=== PATIENT | female | born 1985 | race African-American/Black ===

== ENCOUNTER 2019-07-14 14:23 | Outpatient (CLI) | payer OTHER ==
[2019-07-14 15:06] LABS: APPEARANCE,URINE SLIGHTLY-CLOUDY; BILIRUBIN,URINE NEGATIVE (NEGATIVE); COLOR,URINE YELLOW; GLUCOSE, URINE NEGATIVE (NEGATIVE); KETONES,URINE NEGATIVE (NEGATIVE); LEUKOCYTE ESTERASE,URINE SMALL (NEGATIVE); NITRITE,URINE NEGATIVE (NEGATIVE); PROTEIN,URINE 30 mg/dL (NEGATIVE); URINE SPECIFIC GRAVITY 1.025
[2019-07-14 15:25] LABS: URINE AMPHETAMINES SCREEN NEGATIVE; URINE BARBITURATES SCREEN NEGATIVE; URINE BENZODIAZEPINES SCREEN NEGATIVE; URINE COCAINE SCREEN NEGATIVE; URINE MARIJUANA (THC) SCREEN NEGATIVE; URINE METHADONE SCREEN NEGATIVE; URINE PHENCYCLIDINE SCREEN NEGATIVE
--- NOTE | 2019-07-14 16:01 | Non Stress Test Report ---
Non Stress Test Datetime Report Generated by CPN: 07/14/2019 16:01 DEMOGRAPHIC EGA NST: 38.4 INDICATION Indication for Study: Other - Please document "Reason for NST Other" in box below. Indication for Study (NST) Other: Labor Check MONITORING Monitor Explained: Monitor Explained; Test Explained; Patient Verbalized Understanding Time on Monitor: 07/14/2019 14:54 Time off Monitor: 07/14/2019 15:21 NST Duration: 27 NST INTERVENTIONS NST Interventions: None Physician Notified NST: Dr Juárez BABY A: [id number] BABY A Movement : Present Contraction Frequency : 0 FHR Baseline : 140 Accelerations : 15X15 Decelerations : None Variability : Moderate 6-25bpm NST Review: Meets Criteria for Reactive NST NST Review and Verified By : Tamela Lemus, RN NST Results: Reactive NST REPORT Report Trigger: Send Report
== END 2019-07-14 15:40 | disposition home or self-care (01) ==
LOC: LC 14:23
PROVIDERS: ATTEND Obstetrics & Gynecology
DX: O36.8330 Maternal care for abnormalities of the fetal heart rate or rhythm, third trimester, not applicable or unspecified (principal); Z3A.38 38 weeks gestation of pregnancy
CPT/HCPCS: 80307; 81005

== ENCOUNTER 2019-07-19 20:43 | Inpatient (IN) | payer OTHER ==
[2019-07-19] MEDS ORDERED: RINGERS SOLUTION,LACTATED 1,000 ML IV PRN (22:50)
[2019-07-19] MEDS ORDERED: OXYTOCIN 10 UNIT/ML VIAL ONE (23:12)
[2019-07-19] MEDS ORDERED: OXYTOCIN/NORMAL SALINE 20 UNIT/1,000 ML RTUINJ ONE (23:12)
[2019-07-19] MEDS ORDERED: LIDOCAINE 1% INJ-PF (10 MG/ML) 30 ML SDV ONE (23:12)
[2019-07-19] MEDS ORDERED: MISOPROSTOL 0.2 MG TABLET ONE (23:12)
[2019-07-19 23:20] LABS: APPEARANCE,URINE SLIGHTLY-CLOUDY; BILIRUBIN,URINE NEGATIVE (NEGATIVE); COLOR,URINE YELLOW; GLUCOSE, URINE NEGATIVE (NEGATIVE); KETONES,URINE 20 mg/dL (NEGATIVE); LEUKOCYTE ESTERASE,URINE SMALL (NEGATIVE); NITRITE,URINE NEGATIVE (NEGATIVE); PROTEIN,URINE NEGATIVE (NEGATIVE); URINE SPECIFIC GRAVITY 1.019; UROBILINOGEN,URINE NEGATIVE mg/dL (<2.0)
--- NOTE | 2019-07-19 23:21 | Admission Physical ---
Datetime Report Generated by CPN: 07/19/2019 23:21 CURRENT ADMISSION Chief Complaint: Uterine Contractions Indication for Induction: Not Applicable Admit Impression : Term, Intrauterine Admit Plan: Initiate Labor Protocol ALLERGIES Medication Allergies: No Known Allergies (01/17/2014) OBSTETRICAL HISTORY EDC: 07/24/2019 00:00 : 2 Para: 1 Term: 1 : 0 SAB: 0 IAB: 0 Ectopic: 0 Livin Cesareans: 0 VBACs: 0 Multiple Births: 0 PHYSICAL EXAM General: Normal HEENT: Normal Neurologic: Normal Thyroid: Normal Heart: Normal Lungs: Normal Breast: Deferred Back: Normal Abdomen: Normal Genitourinary Exam: Normal Extremities: Normal DTRs: Normal Pelvic Type: Adequate FETUS A EGA: 39.2 INFORMED CONSENT Signature: with User ID: [email or web address]
[2019-07-19 23:35] LABS: URINE AMPHETAMINES SCREEN NEGATIVE; URINE BARBITURATES SCREEN NEGATIVE; URINE BENZODIAZEPINES SCREEN NEGATIVE; URINE COCAINE SCREEN NEGATIVE; URINE MARIJUANA (THC) SCREEN NEGATIVE; URINE METHADONE SCREEN NEGATIVE; URINE PHENCYCLIDINE SCREEN NEGATIVE
[2019-07-19 23:42] LABS: ABSOLUTE BASOPHILS # (AUTO) 0.1 10^3/uL (0.0-0.2); ABSOLUTE LYMPHOCYTES (AUTO) 1.7 10^3/uL (0.5-4.7); ABSOLUTE MONOCYTES (AUTO) 0.5 10^3/uL (0.1-1.4); ABSOLUTE NEUT (AUTO) 7.1 10^3/uL (1.7-8.2); BASOPHILS % (AUTO) 0.7 % (0-2); EOSINOPHILS % (AUTO) 0.2 % (0-6); HEMATOCRIT 34.9 % (36.0-47.0); HEMOGLOBIN 11.8 g/dL (12.0-15.5); LYMPHOCYTES % (AUTO) 18.3 % (13-45); MEAN CORPUSCULAR HEMOGLOBIN 30.6 pg (27.0-33.4); MEAN CORPUSCULAR HGB CONC 33.7 g/dL (32.0-36.0); MEAN CORPUSCULAR VOLUME 91 fl (80-97); MONOCYTES % (AUTO) 5.2 % (3-13); PLATELET COUNT 256 10^3/uL (150-450); RED BLOOD COUNT 3.85 10^6/uL (3.72-5.28); RED CELL DISTRIBUTION WIDTH 13.8 % (11.5-14.0); SEGMENTED NEUTROPHILS % (AUTO) 75.6 % (42-78); TOTAL CELLS COUNTED % (AUTO) 100 %; WHITE BLOOD COUNT 9.4 10^3/uL (4.0-10.5)
[2019-07-20] MEDS ORDERED: PROMETHAZINE HCL INJ 25 MG/1 ML VIAL IV PRN (01:13)
[2019-07-20] MEDS ORDERED: GLYCERIN/WITCH HAZEL LEAF 1 EACH MED..WIPE TP PRN (01:13)
[2019-07-20] MEDS ORDERED: MAGNESIUM HYDROXIDE SUSP 30 ML UDCUP PO PRN (01:13)
[2019-07-20] MEDS ORDERED: ACETAMINOPHEN WITH CODEINE #3 TABLET PO PRN (01:13)
[2019-07-20] MEDS ORDERED: OXYTOCIN/NORMAL SALINE 20 UNIT/1,000 ML RTUINJ IV PRN (01:13)
[2019-07-20] MEDS ORDERED: MEASLES,MUMPS&RUBELLA VACC/PF 0.5 ML VIAL SUBCUT PRN (01:13)
[2019-07-20] MEDS ORDERED: PSEUDOEPHEDRINE HCL 30 MG TABLET PO PRN (01:13)
[2019-07-20] MEDS ORDERED: DIBUCAINE 1% OINTMENT 56 GM TP PRN (01:13)
[2019-07-20] MEDS ORDERED: ACETAMINOPHEN 650 MG SUPP.RECT PR PRN (01:13)
[2019-07-20] MEDS ORDERED: PROMETHAZINE HCL 25 MG SUPP.RECT PR PRN (01:13)
[2019-07-20] MEDS ORDERED: NA PHOS,M-B/NA PHOS,DI-BA (ADULT) 133 ML ENEMA PR PRN (01:13)
[2019-07-20] MEDS ORDERED: BENZOCAINE/MENTHOL AEROSOL SPRAY 56 ML TOP PRN (01:13)
[2019-07-20] MEDS ORDERED: DIPHENHYDRAMINE HCL 25 MG CAPSULE PO PRN (01:13)
[2019-07-20] MEDS ORDERED: ZOLPIDEM TARTRATE 5 MG TABLET PO PRN (01:13)
[2019-07-20] MEDS ORDERED: PROMETHAZINE HCL 25 MG TABLET PO PRN (01:13)
[2019-07-20] MEDS ORDERED: DIPH/PERTUSS(ACELL)/TETANUS VAC/PF 0.5 ML SYR (>=10YO) IM PRN (01:13)
[2019-07-20] MEDS ORDERED: IBUPROFEN 800 MG TABLET ONE ×2 (01:20→08:34)
[2019-07-20] MEDS: IBUPROFEN 800 MG TABLET PO SCH ×3 (08:36→21:00)
[2019-07-20] MEDS: FAMOTIDINE 20 MG TABLET PO SCH ×2 (10:37→22:00)
[2019-07-20] MEDS: DOCUSATE SODIUM 100 MG CAPSULE PO SCH ×3 (10:37→18:38)
[2019-07-20] MEDS: PRENATAL VITAMIN W DHA CAPSULE PO SCH (10:37)
[2019-07-20] MEDS: FERROUS SULFATE 325 MG TABLET PO SCH ×2 (10:37→18:23)
[2019-07-20] MEDS: SENNOSIDES/DOCUSATE 8.6-50 MG 1 EACH TABLET PO SCH (10:38)
[2019-07-21] MEDS: IBUPROFEN 800 MG TABLET PO SCH ×3 (05:30→21:38)
[2019-07-21 07:33] LABS: HEMATOCRIT 31.9 % (36.0-47.0); MEAN CORPUSCULAR HEMOGLOBIN 31.2 pg (27.0-33.4); MEAN CORPUSCULAR HGB CONC 34.4 g/dL (32.0-36.0); MEAN CORPUSCULAR VOLUME 91 fl (80-97); PLATELET COUNT 209 10^3/uL (150-450); RED BLOOD COUNT 3.52 10^6/uL (3.72-5.28); RED CELL DISTRIBUTION WIDTH 14.1 % (11.5-14.0); WHITE BLOOD COUNT 9.4 10^3/uL (4.0-10.5)
[2019-07-21] MEDS: DOCUSATE SODIUM 100 MG CAPSULE PO SCH ×2 (09:36→18:08)
[2019-07-21] MEDS: PRENATAL VITAMIN W DHA CAPSULE PO SCH (09:37)
[2019-07-21] MEDS: FAMOTIDINE 20 MG TABLET PO SCH ×2 (09:37→22:43)
[2019-07-21] MEDS: FERROUS SULFATE 325 MG TABLET PO SCH ×2 (09:37→18:41)
[2019-07-21] MEDS: SENNOSIDES/DOCUSATE 8.6-50 MG 1 EACH TABLET PO SCH (09:37)
--- NOTE | 2019-07-21 12:30 | PDOC PROGRESS REPORT ---
Subjective-OB Progress Note for:: 07/21/19 Subjective: reports bleeding slowing, pain controlled with current meds, denies needs Physical Exam (OB) Vital Signs: Temp Pulse Resp BP Pulse Ox 97.8 F 95 18 108/62 98 07/21/19 07:29 07/21/19 07:29 07/21/19 07:29 07/21/19 07:29 07/21/19 07:29 Intake & Output 07/20/19 07/21/19 07/22/19 06:59 06:59 06:59 Intake Total 400 Balance 400 - Abdomen Description: Soft Hernia Present: No Fundal Description: Firm, Midline Fundal Height: u/u - u/2 - Abdominal Distension: No distension Tenderness: Nontender - Extremities Lower extremities: Annie's sign - neg Calf: Normal, Nontender Objective-Diagnostic Laboratory: 07/21/19 07:03 07/21/19 07:03 WBC 9.4 RBC 3.52 L Hgb 11.0 L Hct 31.9 L MCV 91 MCH 31.2 MCHC 34.4 RDW 14.1 H Plt Count 209 Assessment and Plan(PN) - Time Spent with Patient Time with patient: Less than 15 minutes - Disposition Anticipated Discharge: Home Within: within 24 hours
[2019-07-22] MEDS: IBUPROFEN 800 MG TABLET PO SCH ×2 (06:09→14:25)
[2019-07-22 08:09] VITALS: BP 109/59
[2019-07-22] MEDS: FAMOTIDINE 20 MG TABLET PO SCH (10:21)
[2019-07-22] MEDS: FERROUS SULFATE 325 MG TABLET PO SCH (10:21)
[2019-07-22] MEDS: DOCUSATE SODIUM 100 MG CAPSULE PO SCH (10:21)
[2019-07-22] MEDS: PRENATAL VITAMIN W DHA CAPSULE PO SCH (10:22)
[2019-07-22] MEDS: SENNOSIDES/DOCUSATE 8.6-50 MG 1 EACH TABLET PO SCH (10:22)
--- NOTE | 2019-07-22 10:39 | PDOC DISCHARGE SUMMARY ---
Impression - Admit/DC Date/PCP Admission Date/Primary Care Provider: 07/19/19 23:00 BATSHEVA VALLADARES MD Discharge Date: 07/22/19 - Discharge Diagnosis (1) Vaginal delivery Is this a current diagnosis for this admission?: Yes - Additional Information Resuscitation Status: Full Code Discharge Diet: Regular Discharge Activity: Balance Activity w/Rest, Pelvic Rest Referrals: BATSHEVA VALLADARES MD [Primary Care Provider] - Prescriptions: Ibuprofen [Motrin 800 mg Tablet] 800 mg PO Q8HP PRN #60 tablet PRN Reason: Home Medications: No.137/Iron/Folic Acd [ Vitamin Tablet] 1 tab PO DAILY 01/17/14 Fluticasone Propionate [Flonase Nasal [place] 50 Mcg/[place] 16 gm] 2 sprays NASL Q12 #1 inhaler 12/18/15 Ibuprofen [Motrin 800 mg Tablet] 800 mg PO Q8HP PRN #60 tablet 07/22/19 Results Laboratory Results: WBC 9.4 10^3/uL (4.0-10.5) 07/21/19 07:03 RBC 3.52 10^6/uL (3.72-5.28) L 07/21/19 07:03 Hgb 11.0 g/dL (12.0-15.5) L 07/21/19 07:03 Hct 31.9 % (36.0-47.0) L 07/21/19 07:03 MCV 91 fl (80-97) 07/21/19 07:03 MCH 31.2 pg (27.0-33.4) 07/21/19 07:03 MCHC 34.4 g/dL (32.0-36.0) 07/21/19 07:03 RDW 14.1 % (11.5-14.0) H 07/21/19 07:03 Plt Count 209 10^3/uL (150-450) 07/21/19 07:03 Lymph % (Auto) 18.3 % (13-45) 07/19/19 23:06 [place] % (Auto) 5.2 % (3-13) 07/19/19 23:06 Eos % (Auto) 0.2 % (0-6) 07/19/19 23:06 Baso % (Auto) 0.7 % (0-2) 07/19/19 23:06 Absolute Neuts (auto) 7.1 10^3/uL (1.7-8.2) 07/19/19 23:06 Absolute Lymphs (auto) 1.7 10^3/uL (0.5-4.7) 07/19/19 23:06 Absolute Monos (auto) 0.5 10^3/uL (0.1-1.4) 07/19/19 23:06 Absolute Eos (auto) 0.0 10^3/uL (0.0-0.6) 07/19/19 23:06 Absolute Basos (auto) 0.1 10^3/uL (0.0-0.2) 07/19/19 23:06 Seg Neutrophils % 75.6 % (42-78) 07/19/19 23:06 Urine Color YELLOW 07/19/19 20:59 Urine Appearance SLIGHTLY-CLOUDY 07/19/19 20:59 Urine pH 6.0 (5.0-9.0) 07/19/19 20:59 Ur Specific [place] 1.019 07/19/19 20:59 Urine Protein NEGATIVE mg/dL (NEGATIVE) 07/19/19 20:59 Urine Glucose (UA) NEGATIVE mg/dL (NEGATIVE) 07/19/19 20:59 Urine Ketones 20 mg/dL (NEGATIVE) H 07/19/19 20:59 Urine Blood MODERATE (NEGATIVE) H 07/19/19 20:59 Urine Nitrite NEGATIVE (NEGATIVE) 07/19/19 20:59 Urine Bilirubin NEGATIVE (NEGATIVE) 07/19/19 20:59 Urine Urobilinogen NEGATIVE mg/dL (<2.0) 07/19/19 20:59 Ur Leukocyte Esterase SMALL (NEGATIVE) H 07/19/19 20:59 Urine Ascorbic Acid NEGATIVE (NEGATIVE) 07/19/19 20:59 Urine Opiates Screen NEGATIVE 07/19/19 20:59 Urine Methadone Screen NEGATIVE 07/19/19 20:59 Ur Barbiturates Screen NEGATIVE 07/19/19 20:59 Ur Phencyclidine Scrn NEGATIVE 07/19/19 20:59 Ur Amphetamines Screen NEGATIVE 07/19/19 20:59 U Benzodiazepines Scrn NEGATIVE 07/19/19 20:59 Urine Cocaine Screen NEGATIVE 07/19/19 20:59 U Marijuana (THC) Screen NEGATIVE 07/19/19 20:59 RPR NONREACTIVE (NONREACTIVE) 07/19/19 23:06 Blood Type O POSITIVE 07/19/19 23:06 Antibody Screen NEGATIVE 07/19/19 23:06
--- NOTE | 2019-07-24 14:29 | Delivery Summary ---
Del Sum A-C Datetime Report Generated by CPN: 07/24/2019 14:29 DELIVERY PERSONNEL DELIVERY PERSONNEL: [id number] Delivery Doctor:: Len Moreno MD Labor and Delivery Nurse:: Alvina Baldwin RN Labor and Delivery Nurse:: Amarilis Mcmullen RN Nursery Nurse:: Natividad Santiago, RN Merchandise Presentation Associate/GLASS CRUSHER: Aida Mark VICE PRESIDENT SUPPLY CHAIN MATERNAL INFORMATION Delivery Anesthesia: None Medications After Delivery: Pitocin Bolus-Please Comment Maternal Complications: None LABOR SUMMARY EDC: 07/24/2019 00:00 No. Babies in Womb: 1 Attempted: No Labor Anesthesia: None LABOR INFORMATION Reason for Induction: Not Applicable Onset of Labor: 07/19/2019 22:45 Complete Dilatation: 07/20/2019 00:52 Oxytocin: N/A Group B Beta Strep: negative Steroids Given: None Reason Steroids Not Administered: Not Applicable MEMBRANES Membranes Rupture Method: Artificial Rupture of Membranes: 07/20/2019 00:40 Length of Rupture (hr): 0.35 Amniotic Fluid Color: Clear Amniotic Fluid Amount: Small Amniotic Fluid Odor: Normal STAGES OF LABOR Stage 1 hr: 2 Stage 1 min: 7 Stage 2 hr: 0 Stage 2 min: 9 Stage 3 hr: 0 Stage 3 min: 1 Total Time in Labor hr: 2 Total Time in Labor min: 17 VAGINAL DELIVERY Episiotomy: None Laceration #1: Perineal Laceration Extension #1: First Degree Laceration Repair Note: repaired with 2-0 vicryl BABY A INFORMATION Infant Delivery Date/Time: 07/20/2019 01:01 Method of Delivery: Vaginal Method of Delivery: Vaginal Born in Route : No : N/A Forceps: N/A Vacuum Extraction: N/A Shoulder Dystocia : No PRESENTATION/POSITION BABY A Presentation: Cephalic Cephalic Presentation: Vertex Vertex Position: Right Occipital Anterior Breech Presentation: N/A PLACENTA INFORMATION BABY A Placenta Delivery Time : 07/20/2019 01:02 Placenta Method of Delivery: Spontaneous Placenta Method of Delivery: Spontaneous Placenta Status: Delivered SCORES BABY A Heart Rate 1 min: >100 bpm Resp Effort 1 min: Good Cry Reflex Irritability 1 min: Cough or Sneeze or Pulls Away Muscle Tone 1 min: Active Motion Color 1 min: Body [place], Extremities Blue SCORE 1 MIN: 9 Heart Rate 5 min: >100 bpm Resp Effort 5 min: Good Cry Reflex Irritability 5 min: Cough or Sneeze or Pulls Away Muscle Tone 5 min: Active Motion Color 5 min: Body [place], Extremities Blue SCORE 5 MIN: 9 INFORMATION BABY A Gestational Age at Delivery: 39.3 Gestational Status: Full Term- 39- 40.6 Weeks Outcome : Liveborn Infant Condition : Stable Infant Sex: Female Sex: Female IDENTIFICATION BABY A Infant Verification Date/Time: 07/20/2019 01:37 ID Band Number: [id number] Mother's Name Verified: Yes RN Verifying : Rebeca MESFIN Montes and Dash Abbott RN CORD INFORMATION BABY A No. Cord Vessels: 3 Nuchal Cord : N/A Cord Blood Taken: Yes-For Storage (Mom's Blood type +) Infant Suction: Mouth; Nose ASSESSMENT BABY A Infant Complications: None Physical Findings at Delivery: Within Normal Limits Transferred To: Remains with Mother SIGNATURES Signature: with User ID: [email or web address]
--- NOTE | 2019-07-24 18:35 | Delivery Summary ---
Del Sum A-C Datetime Report Generated by CPN: 07/24/2019 18:35 DELIVERY PERSONNEL DELIVERY PERSONNEL: [id number] Delivery Doctor:: Len Moreno MD Labor and Delivery Nurse:: Alvina Baldwin RN Labor and Delivery Nurse:: Amarilis Mcmullen RN Nursery Nurse:: Natividad Santiago, RN Assembly Machine Tender/DYE REEL OPERATOR: Aida Mark HEALTH ADMINISTRATOR MATERNAL INFORMATION Delivery Anesthesia: None Medications After Delivery: Pitocin Bolus-Please Comment Maternal Complications: None LABOR SUMMARY EDC: 07/24/2019 00:00 No. Babies in Womb: 1 Attempted: No Labor Anesthesia: None LABOR INFORMATION Reason for Induction: Not Applicable Onset of Labor: 07/19/2019 22:45 Complete Dilatation: 07/20/2019 00:52 Oxytocin: N/A Group B Beta Strep: negative Steroids Given: None Reason Steroids Not Administered: Not Applicable MEMBRANES Membranes Rupture Method: Artificial Rupture of Membranes: 07/20/2019 00:40 Length of Rupture (hr): 0.35 Amniotic Fluid Color: Clear Amniotic Fluid Amount: Small Amniotic Fluid Odor: Normal STAGES OF LABOR Stage 1 hr: 2 Stage 1 min: 7 Stage 2 hr: 0 Stage 2 min: 9 Stage 3 hr: 0 Stage 3 min: 1 Total Time in Labor hr: 2 Total Time in Labor min: 17 VAGINAL DELIVERY Episiotomy: None Laceration #1: Perineal Laceration Extension #1: First Degree Laceration Repair Note: repaired with 2-0 vicryl BABY A INFORMATION Infant Delivery Date/Time: 07/20/2019 01:01 Method of Delivery: Vaginal Method of Delivery: Vaginal Born in Route : No : N/A Forceps: N/A Vacuum Extraction: N/A Shoulder Dystocia : No PRESENTATION/POSITION BABY A Presentation: Cephalic Cephalic Presentation: Vertex Vertex Position: Right Occipital Anterior Breech Presentation: N/A PLACENTA INFORMATION BABY A Placenta Delivery Time : 07/20/2019 01:02 Placenta Method of Delivery: Spontaneous Placenta Method of Delivery: Spontaneous Placenta Status: Delivered SCORES BABY A Heart Rate 1 min: >100 bpm Resp Effort 1 min: Good Cry Reflex Irritability 1 min: Cough or Sneeze or Pulls Away Muscle Tone 1 min: Active Motion Color 1 min: Body [place], Extremities Blue SCORE 1 MIN: 9 Heart Rate 5 min: >100 bpm Resp Effort 5 min: Good Cry Reflex Irritability 5 min: Cough or Sneeze or Pulls Away Muscle Tone 5 min: Active Motion Color 5 min: Body [place], Extremities Blue SCORE 5 MIN: 9 INFORMATION BABY A Gestational Age at Delivery: 39.3 Gestational Status: Full Term- 39- 40.6 Weeks Outcome : Liveborn Infant Condition : Stable Infant Sex: Female Sex: Female IDENTIFICATION BABY A Infant Verification Date/Time: 07/20/2019 01:37 ID Band Number: [id number] Mother's Name Verified: Yes RN Verifying : Rebeca MESFIN Montes and Dash Abbott RN CORD INFORMATION BABY A No. Cord Vessels: 3 Nuchal Cord : N/A Cord Blood Taken: Yes-For Storage (Mom's Blood type +) Infant Suction: Mouth; Nose ASSESSMENT BABY A Infant Complications: None Physical Findings at Delivery: Within Normal Limits Transferred To: Remains with Mother SIGNATURES Signature: with User ID: [email or web address]
== END 2019-07-22 14:30 | disposition home or self-care (01) | DRG 807 ==
LOC: LC 20:43 → LR 23:00 → 2S 07-20 08:56
PROVIDERS: ADMIT Obstetrics & Gynecology Gynecology; ATTEND Obstetrics & Gynecology Gynecology
PROC: 10E0XZZ Delivery of Products of Conception, External Approach (ICD-10-PCS; principal; 2019-07-20)
PROC: 0HQ9XZZ Repair Perineum Skin, External Approach (ICD-10-PCS; 2019-07-20)
PROC: 10907ZC Drainage of Amniotic Fluid, Therapeutic from Products of Conception, Via Natural or Artificial Opening (ICD-10-PCS; 2019-07-20)
DX: O70.0 First degree perineal laceration during delivery (principal); Z37.0 Single live birth; Z3A.39 39 weeks gestation of pregnancy
CPT/HCPCS: 36415; 80307; 81005; 85025; 85027; 86592; 86850; 86900; 86901; J2590; J3490

== ENCOUNTER 2020-07-03 18:37 | Emergency (ER) | payer OTHER ==
[2020-07-03] MEDS ORDERED: METHYLPREDNISOLONE INJ 125 MG/2 ML SDV IV ONE (18:46)
[2020-07-03] MEDS ORDERED: DIPHENHYDRAMINE HCL 50 MG/ML VIAL IV ONE (18:46)
[2020-07-03] MEDS ORDERED: FAMOTIDINE INJ/PF 20 MG/2 ML SDV IV ONE (18:46)
[2020-07-03] MEDS ORDERED: EPINEPHRINE INJ/PF 1 MG/1 ML AMPULE IM ONE (18:46)
[2020-07-03] MEDS ORDERED: NORMAL SALINE 1000 ML 1,000 ML IV ONE (18:53)
--- NOTE | 2020-07-03 18:57 | ER Document Report ---
ED Medical Screen (RME) - General TRAVEL OUTSIDE OF THE [place] IN LAST 30 DAYS: No <JEANINE WALKER - Last Filed: 07/03/20 18:47> <ROBERTO TINOCO - Last Filed: 07/03/20 19:21> - General Chief Complaint: Allergic Reaction Stated Complaint: POSSIBLE ALLERGIC REACTION Time Seen by Provider: 07/03/20 18:45 Primary Care Provider: BATSHEVA VALLADARES MD [Primary Care Provider] - Follow up as needed - [facility] Notes: 07/03/20 18:47 Patient is a 34-year-old female presenting with concern for allergic reaction to fire ant bites. She was outside in her yard earlier today when she fell on the ground into a fire ant nest where she was bitten across her back and arms. The bites have swollen and now she states that she is having shortness of breath and feels like her mouth and throat are swelling up. Has never had a reaction like this before to any insect bites. Brief medical screening exam reveals diffuse hives to the arms abdomen chest back face. Lips appear to be slightly swollen. Eyelids are both swollen. Chest auscultation is clear. Charge was notified of the patient in epinephrine, Solu-Medrol, Pepcid, Benadryl were ordered. Also updated Dr. Tinoco, ER attending. He will see the patient. She was bedded immediately into bed 19. I performed a brief medical screening exam on the patient determined that the patient needs further evaluation and management by main side provider. I have placed initial orders to help expedite care. (JEANINE WALKER) - Related Data Allergies/Adverse Reactions: No Known Allergies Allergy (Unverified 01/17/14 00:15) Past Medical History GI Medical History: Reports: Hx Gastroesophageal Reflux Disease - gastritis, Hx Hiatal Hernia <JEANINE WALKER - Last Filed: 07/03/20 18:47> Course - Laboratory Result Diagrams: 07/03/20 15:56 07/03/20 15:56 <ROBERTO TINOCO - Last Filed: 07/03/20 19:21> - Laboratory Laboratory results interpreted by me: 07/03/20 15:56 Lymph % (Auto) 50.2 H Seg Neutrophils % 39.1 L Doctor's Discharge <JEANINE WALKER M - Last Filed: 07/03/20 18:47> <ROBERTO TINOCO - Last Filed: 07/03/20 19:21> - Discharge Referrals: BATSHEVA VALLADARES MD [Primary Care Provider] - Follow up as needed
[2020-07-03 19:14] LABS: ABSOLUTE BASOPHILS # (AUTO) 0.1 10^3/uL (0.0-0.2); ABSOLUTE EOSINOPHILS # (AUTO) 0.1 10^3/uL (0.0-0.6); ABSOLUTE LYMPHOCYTES (AUTO) 2.3 10^3/uL (0.5-4.7); ABSOLUTE MONOCYTES (AUTO) 0.4 10^3/uL (0.1-1.4); ABSOLUTE NEUT (AUTO) 1.8 10^3/uL (1.7-8.2); BASOPHILS % (AUTO) 1.2 % (0-2); EOSINOPHILS % (AUTO) 1.2 % (0-6); HEMOGLOBIN 14.5 g/dL (12.0-15.5); LYMPHOCYTES % (AUTO) 50.2 % (13-45); MEAN CORPUSCULAR HEMOGLOBIN 31.5 pg (27.0-33.4); MEAN CORPUSCULAR HGB CONC 33.9 g/dL (32.0-36.0); MEAN CORPUSCULAR VOLUME 93 fl (80-97); MONOCYTES % (AUTO) 8.3 % (3-13); PLATELET COUNT 272 10^3/uL (150-450); RED BLOOD COUNT 4.61 10^6/uL (3.72-5.28); RED CELL DISTRIBUTION WIDTH 12.9 % (11.5-14.0); SEGMENTED NEUTROPHILS % (AUTO) 39.1 % (42-78); TOTAL CELLS COUNTED % (AUTO) 100 %; WHITE BLOOD COUNT 4.6 10^3/uL (4.0-10.5)
--- NOTE | 2020-07-03 19:26 | ER Document Report ---
ED General - General Chief Complaint: Allergic Reaction Stated Complaint: POSSIBLE ALLERGIC REACTION Time Seen by Provider: 07/03/20 18:45 Primary Care Provider: BATSHEVA VALLADARES MD [Primary Care Provider] - Follow up as needed Notes: 34 year old female arrives via triage after fireant bites a short time ago - perhaps 45 minutes - locally. She is experiencing hives and itchiness everywhere and weakness. No chest pain or sob. No fever or recent illness. No h/o similar in the past or bee sting or other in the past with similar reaction. Here with significant other. TRAVEL OUTSIDE OF THE [place] IN LAST 30 DAYS: No - HPI Onset: Just prior to arrival Onset/Duration: Sudden Quality of pain: No pain Severity: Severe Associated symptoms: Weakness Exacerbated by: Denies Relieved by: Denies Similar symptoms previously: No - Related Data Allergies/Adverse Reactions: No Known Allergies Allergy (Unverified 01/17/14 00:15) Past Medical History - Social History Smoking Status: Unknown if Ever Smoked Family History: Reviewed & Not Pertinent Patient has homicidal ideation: No GI Medical History: Reports: Hx Gastroesophageal Reflux Disease - gastritis, Hx Hiatal Hernia Review of Systems - Review of Systems Constitutional: Weakness EENT: No symptoms reported Cardiovascular: No symptoms reported Respiratory: No symptoms reported Gastrointestinal: No symptoms reported Genitourinary: No symptoms reported Female Genitourinary: No symptoms reported Musculoskeletal: No symptoms reported Skin: See HPI, Change in color, Lesions Hematologic/Lymphatic: No symptoms reported Neurological/Psychological: No symptoms reported Physical Exam - Vital signs Vitals: Resp Pulse Ox 16 99 07/03/20 19:00 07/03/20 19:00 Interpretation: Normal - General General appearance: Appears well, Alert - HEENT Head: Normocephalic, Atraumatic Eyes: Normal Pupils: PERRL - Respiratory Respiratory status: No respiratory distress Chest status: Nontender Breath sounds: Normal Chest palpation: Normal - Cardiovascular Rhythm: Regular Heart sounds: Normal auscultation Murmur: No - Abdominal Inspection: Normal Distension: No distension Bowel sounds: Normal Tenderness: Nontender Organomegaly: No organomegaly - Back Back: Normal, Nontender - Extremities General upper extremity: Normal inspection, Nontender, Normal color, Normal ROM, Normal temperature General lower extremity: Normal inspection, Nontender, Normal color, Normal ROM, Normal temperature, Normal weight bearing. No: Annie's sign - Neurological Neuro grossly intact: Yes Cognition: Normal Orientation: AAOx4 [place] Coma Scale Eye Opening: Spontaneous [place] Coma Scale Verbal: Oriented [place] Coma Scale Motor: Obeys Commands [place] Coma Scale Total: 15 Speech: Normal Motor strength normal: LUE, RUE, LLE, RLE Sensory: Normal - Psychological Associated symptoms: Normal affect, Normal mood - Skin Skin Temperature: Warm Skin Moisture: Dry Skin Color: Erythema. negative: Normal Course - Re-evaluation Re-evalutation: 07/03/20 19:24 MDM 34 year old placed in room 19 immediately and administered subq epi and steroids and h2 janki. Recheck after about 15 minutes and her redness has r esolved and she feels a bit shakey but is otherwise ok she tells me. 07/03/20 21:13 She feels better when I recheck her. Reportedly the volume of fire ants involved was very large. She has no chest pain or sob and her hives that covered her body are now gone. She may follow up and I will write for an epi pen which I discuss with her. - Vital Signs Vital signs: Temp Pulse Resp BP Pulse Ox 16 142/70 H 99 07/03/20 19:00 07/03/20 20:01 07/03/20 20:01 - Laboratory Result Diagrams: 07/03/20 15:56 07/03/20 15:56 Laboratory results interpreted by me: 07/03/20 07/03/20 15:56 15:56 Lymph % (Auto) 50.2 H Seg Neutrophils % 39.1 L Potassium 3.5 L Critical Care Note - Critical Care Note Total time excluding time spent on procedures (mins): 30 Discharge - Discharge Clinical Impression: Acute anaphylaxis Qualifiers: Encounter type: initial encounter Qualified Code(s): T78.2XXA - Anaphylactic shock, unspecified, initial encounter Allergic reaction Qualifiers: Encounter type: initial encounter Qualified Code(s): T78.40XA - Allergy, unspecified, initial encounter Condition: Stable Disposition: HOME, SELF-CARE Instructions: Acute Allergic Reaction ([facility]), Swollen Insect Bite or Sting ([facility]) Additional Instructions: Take benadryl - 50 mg tonight at bedtime. Please return here for chest pain, shortness of breath or any other problems or other concerns. Referrals: BATSHEVA VALLADARES MD [Primary Care Provider] - Follow up as needed
[2020-07-03 19:27] LABS: ALBUMIN 4.6 g/dL (3.5-5.0); ALKALINE PHOSPHATASE 101 U/L (38-126); ANION GAP 12 (5-19); ASPARTATE AMINO TRANSFERASE 25 U/L (14-36); BILIRUBIN,TOTAL 0.7 mg/dL (0.2-1.3); BLOOD UREA NITROGEN 14 mg/dL (7-20); CALCIUM 9.4 mg/dL (8.4-10.2); CARBON DIOXIDE 23 mmol/L (22-30); CHLORIDE 105 mmol/L (98-107); GLUCOSE 98 mg/dL (75-110); POTASSIUM 3.5 mmol/L (3.6-5.0); TOTAL PROTEIN 7.8 g/dL (6.3-8.2)
[2020-07-03 20:36] VITALS: BP 142/70
== END 2020-07-03 21:55 | disposition home or self-care (01) ==
LOC: ER 18:37
DX: R53.1 Weakness (principal); L98.9 Disorder of the skin and subcutaneous tissue, unspecified; T78.40XA Allergy, unspecified, initial encounter; T78.2XXA Anaphylactic shock, unspecified, initial encounter; T63.421A Toxic effect of venom of ants, accidental (unintentional), initial encounter
CPT/HCPCS: 99284; 96372; 96361; 96374; 96375; 36415; 85025; 80053; J1200; J0171; J2930; J7030; S0028